=== PATIENT | male | born 1965 | race Asian ===

== ENCOUNTER 2018-05-07 14:46 | Emergency (ER) | payer SELFPAY ==
[~2018-05-07] VITALS: Ht 172.7 cm; Wt 76.0 kg
[2018-05-07 14:55] VITALS: BP 162/98
== END 2018-05-07 17:21 | disposition home or self-care (01) ==
LOC: ER 14:46
DX: S16.1XXA Strain of muscle, fascia and tendon at neck level, initial encounter (principal); S20.212A Contusion of left front wall of thorax, initial encounter; V49.49XA Driver injured in collision with other motor vehicles in traffic accident, initial encounter; Y93.89 Activity, other specified; Y92.410 Unspecified street and highway as the place of occurrence of the external cause
CPT/HCPCS: 99283